=== PATIENT | female | born 1965 | race American Indian/Alaskan Native ===

== ENCOUNTER 2017-03-01 11:16 | Outpatient (CLI) | payer BC ==
--- NOTE | 2017-03-01 12:21 | Mammography Report ---
Screening mammogram: The breast pattern is generally fatty. In the medial left breast there is an elongated area of increased density which I cannot identify on prior exams dating back to 2008. The breast pattern otherwise appears unchanged and unremarkable. CAD used. Impression: Right breast asymmetry. Recommendation: Right breast compression imaging and ultrasound as needed. BI-RADS CATEGORY: 0 = Needs additional imaging evaluation ACR BI-RADS MAMMOGRAPHIC CODES: 0 = Needs additional imaging evaluation; 1 = Negative; 2 = Benign; 3 = Probably benign; 4 = Suspicious; 5 = Malignant; 6 = Known biopsy-proven malignancy COMMENT: 1. Dense breast tissue, i.e., adenosis, fibrocystic changes, etc., may obscure an underlying neoplasm. 2. Approximately 10% of cancers are not detected with mammography. 3. A negative mammography report should not delay biopsy if a clinically suspicious mass is present.
== END 2017-03-01 11:17 | disposition home or self-care (01) ==
LOC: SPVWC 11:16
PROVIDERS: ATTEND Internal Medicine
DX: Z12.31 Encounter for screening mammogram for malignant neoplasm of breast (principal)
CPT/HCPCS: 77067; G0202

== ENCOUNTER 2017-07-10 15:37 | Outpatient (CLI) | payer BC ==
--- NOTE | 2017-07-10 16:17 | Mammography Report ---
Diagnostic right mammogram. History: Recall for right asymmetry. Findings: Spot compression images in both projections demonstrate satisfactory effacement of the previously noted densities no evidence of mass or architectural distortion. Also, the 90degree lateral medial view demonstrates no significant findings. Impression: Negative right mammogram. BI-RADS code: 1. Recommendation: Annual screening.
== END 2017-07-10 15:38 | disposition home or self-care (01) ==
LOC: SPVWC 15:37
PROVIDERS: ATTEND Internal Medicine
DX: R92.8 Other abnormal and inconclusive findings on diagnostic imaging of breast (principal)
CPT/HCPCS: G0206-RT

== ENCOUNTER 2019-06-02 11:43 | Outpatient (CLI) | payer BC ==
--- NOTE | 2019-06-03 10:42 | Mammography Report ---
DIGITAL SCREENING MAMMOGRAM WITH CAD, 06/02/2019 INDICATION: Routine screening mammography. TECHNIQUE: Digital bilateral 2D mammography was obtained in the craniocaudal and mediolateral obliq ue projections. This examination was interpreted with the benefit of Computer-Aided Detection analysi s. COMPARISON: 05/29/2018 FINDINGS: Breast Density: There are scattered areas of fibroglandular density. There is no evidence of dominant mass, suspicious calcifications or architectural distortion in eithe r breast. IMPRESSION: No mammographic evidence of malignancy. Follow up recommendation: Routine yearly BI-RADS Category 1: Negative. A "normal" or negative report should not discourage follow up or biopsy of a clinically significant f inding. A written summary of these findings will be mailed to the patient. The patient will be entered into a mammography reporting system which will generate a reminder letter for the patient's next appointmen t at the appropriate interval. The [employer] recommends yearly mammograms starting at age 40 and continuing as l mitchell as a woman is in good health. Breast MRI is recommended for women with an approximate 20-25% or greater lifetime risk of breast cancer, including women with a strong family history of breast or ova kash cancer or who have been treated for Hodgkin's disease. Signer Name: Dawson Georges MD Signed: 06/03/2019 10:38 AM Workstation Name: [id number]
== END 2019-06-02 11:44 | disposition home or self-care (01) ==
LOC: SPVWC 11:43
PROVIDERS: ATTEND Internal Medicine
DX: Z12.31 Encounter for screening mammogram for malignant neoplasm of breast (principal)
CPT/HCPCS: 77067

== ENCOUNTER 2020-06-03 16:12 | Outpatient (CLI) | payer BC ==
--- NOTE | 2020-06-06 10:41 | Mammography Report ---
DIGITAL SCREENING MAMMOGRAM WITH CAD, 06/03/2020 CLINICAL INFORMATION / INDICATION: Routine screening mammography. SCREENING MAMMO TECHNIQUE: Digital bilateral 2D mammography was obtained in the craniocaudal and mediolateral obliqu e projections. This examination was interpreted with the benefit of Computer-Aided Detection analysis . COMPARISON: Prior mammograms 06/02/2019 and 05/29/2018 FINDINGS: Breast Density: The breasts are almost entirely fatty. No dominant mass, suspicious calcifications, or architectural distortion in either breast. There is stable benign postsurgical change seen in both breasts. There has been no significant change compared with the prior examinations. IMPRESSION: No mammographic evidence of malignancy. Follow up recommendation: Routine yearly BI-RADS Category 2: Benign. A "normal" or negative report should not discourage follow up or biopsy of a clinically significant f inding. A written summary of these findings will be mailed to the patient. The patient will be entered into a mammography reporting system which will generate a reminder letter for the patient's next appointmen t at the appropriate interval. The [employer] recommends yearly mammograms starting at age 40 and continuing as l mitchell as a woman is in good health. Breast MRI is recommended for women with an approximate 20-25% or greater lifetime risk of breast cancer, including women with a strong family history of breast or ova kash cancer or who have been treated for Hodgkin's disease. Signer Name: Josie Merino MD Signed: 06/06/2020 10:36 AM Workstation Name: [id number]
== END 2020-06-03 16:13 | disposition home or self-care (01) ==
LOC: SPVWC 16:12
PROVIDERS: ATTEND Obstetrics & Gynecology
DX: Z12.31 Encounter for screening mammogram for malignant neoplasm of breast (principal); Z98.890 Other specified postprocedural states
CPT/HCPCS: 77067